=== PATIENT | female | born 1950 | race Caucasian/White ===

== ENCOUNTER 2016-11-02 19:27 | Observation (INO) | payer MEDICARE ==
[2016-11-02] MEDS ORDERED: LIDOCAINE VIS-MYLANTA 30 ML UD PO ONE (20:17)
[2016-11-02] MEDS ORDERED: SODIUM CHLORIDE 0.9% 1000ML 1,000 ML IVS ONE (20:18)
[2016-11-02] MEDS ORDERED: ONDANSETRON ODT 8 MG TAB SL SCH (20:30)
--- NOTE | 2016-11-02 20:56 | RAD ---
PROCEDURE: Abdomen Series Clinical History: abd pain/n/v Indication: Same as above Comparison: None Technique: Two views of the abdomen and pelvis were done and single view of the chest. Findings: There is no gross evidence of free air in the abdomen or the pelvis . The small and large bowel gas pattern does not show any evidence of obstruction, ileus or bowel wall thickening. There is no visualization of radiopaque calculi in the outline of the urinary tract. Note is made of multiple gallstones. There is ectasia and calcification of the abdominal aorta There is presence of mild constipation. There are no discrete airspace infiltrates or pleural effusions. There is no pneumothorax. Note is made of a 1 cm benign calcified granuloma in the periphery of the left midchest. The cardiomediastinal silhouette is unremarkable Impression: Note is made of multiple gallstones. There is ectasia and calcification of the abdominal aorta There is presence of mild constipation. There are no acute lung parenchymal findings Location of Interpretation: [id number] Electronically signed by: Faheem Lee MD 11/02/2016 8:56 PM [facility]
[2016-11-02] MEDS ORDERED: ACETAMINOPHEN 325 MG TAB PO ONE (21:28)
[2016-11-02] MEDS ORDERED: levoFLOXacin 500MG IV 500 MG in PREMIX BAG 1 BAG IVPB ONE (22:59)
[2016-11-02] MEDS ORDERED: metroNIDAZOLE IV PREMIX 500MG 500 MG in PREMIX BAG 1 BAG IVPB ONE (22:59)
[2016-11-02] MEDS ORDERED: metroNIDAZOLE IV PREMIX 500MG 100 ML IVPB ONE (23:04)
[2016-11-02] MEDS ORDERED: levoFLOXacin 500MG IV 100 ML IVPB ONE (23:05)
--- NOTE | 2016-11-02 23:11 | ED.PDOC ---
History of Present Illness - General Chief Complaint: Abdominal Pain Stated Complaint: abdominal pain Time Seen by Provider: 11/02/16 20:16 Source: patient Exam Limitations: no limitations - History of Present Illness Initial Comments: the patient is a 66-year-old female presenting to the emergency roomdue to 1 day of nausea and vomiting. She apparently had a couple of episodes of diarrhea yesterday. She has also had some low-grade fevers. She has some right upper quadrant discomfort to palpation. She went to her primary care doctor's office today who felt that the discomfort was either likely from gallbladder disease or significant gastritis. She was written for anti-emetics and Protonix along with Carafate. In spite of these medications she worsened. The patient shows up with [id number] dehydration and significant abdominal pain as well as a low-grade fever. She does still have her gallbladder. She does have significant right upper quadrant discomfort palpation. Timing/Duration: 24 hours Severity: moderate Improving Factors: medication Worsening Factors: eating Associated Symptoms: fever/chills, loss of appetite, malaise, nausea/vomiting Allergies/Adverse Reactions: Allergies Hydrocodone Allergy (Verified 11/02/16 21:00) Sulfa Antibiotics Allergy (Verified 11/02/16 21:00) Home Medications: Ambulatory Orders Blood Pressuremed 11/02/16 Levothyroxine Sodium 11/02/16 Review of Systems - Review of Systems Constitutional: States: fever, malaise EENTM: States: no symptoms reported Respiratory: States: no symptoms reported Cardiology: States: no symptoms reported Gastrointestinal/Abdominal: States: abdominal pain, diarrhea, nausea, vomiting Genitourinary: States: no symptoms reported Musculoskeletal: States: no symptoms reported Skin: States: no symptoms reported Neurological: States: no symptoms reported Endocrine: States: no symptoms reported All other Systems: No Change from Baseline Past Medical History (General) - Patient Medical History Hx Hypertension: Yes Hx Thyroid Disease: Yes Hx Diabetes: No - Vaccination History Hx Influenza Vaccination: No - Female History Patient is a Female of Child Bearing Age (10 -59 yrs old): No - Triage Comment ED Triage Comment: states pain at 8, is constant. Belching and vomiting Family Medical History - Family History Mother Family History: Unknown Physical Exam - Physical Exam General Appearance: Alert, Ill Appearing Eye Exam: bilateral normal Ears, Nose, Throat: normal ENT inspection, normal pharynx Neck: full range of motion, supple, normal inspection Respiratory: chest non-tender, lungs clear, normal breath sounds, no respiratory distress, no accessory muscle use Cardiovascular/Chest: normal peripheral pulses, regular rate, rhythm, no edema Peripheral Pulses: radial,right: 2+, radial,left: 2+ Gastrointestinal/Abdominal: soft, other - right upper quadrant discomfort to palpation. No definite palpable mass. Rectal Exam: deferred Back Exam: normal inspection, no CVA tenderness Extremity: normal range of motion, non-tender, normal inspection, no pedal edema , no calf tenderness, normal capillary refill Neurologic: alert, normal mood/affect, oriented x 3 Skin Exam: normal color Comments: Vital Signs - 24 hr 11/02/16 20:55 Temperature 100.1 F H Pulse Rate [ 72 Right] Respiratory 18 Rate Blood Pressure 121/86 [Left Arm] O2 Sat by Pulse 96 Oximetry Progress - Progress Progress: 11/02/16 23:13 the patient is a 66-year-old female presenting with what appears to be acute cholecystitis. The patient will be made nothing by mouth. She is receiving IV Levaquin and metronidazole. The patient is feeling somewhat better after IV fluids and antibiotics. Admit for further management and surgical intervention as deemed necessary. Additionally the patient does have a new finding of an abdominal aortic aneurysm measuring 4.5 cm. An ultrasound in the morning for further characterization would be recommended both for current evaluation and for future comparisons. Vital signs remained stable. Admit. - Results/Orders Results/Orders: Laboratory Last Values WBC 10.0 K/mm3 (4.8-10.8) 11/02/16 20:30 RBC 4.85 M/mm3 (4.20-5.40) 11/02/16 20:30 Hgb 14.4 gm/dL (12.0-16.0) 11/02/16 20:30 Hct 43.2 % (36.0-47.0) 11/02/16 20:30 MCV 89.0 fl (81.0-99.0) 11/02/16 20:30 MCH 29.7 pg (27.0-31.0) 11/02/16 20:30 MCHC 33.4 g/dL (33.0-37.0) 11/02/16 20:30 RDW 12.9 % (11.5-14.5) 11/02/16 20:30 Plt Count 213 K/mm3 (130-400) 11/02/16 20:30 MPV 7.8 fl (7.40-10.4) 11/02/16 20:30 Absolute Neuts (auto) 7.30 K/uL (1.8-6.8) H 11/02/16 20:30 Absolute Lymphs (auto) 1.90 K/uL (1.0-3.4) 11/02/16 20:30 Absolute Monos (auto) 0.70 K/uL (0.2-0.8) 11/02/16 20:30 Absolute Eos (auto) 0.10 K/uL (0.0-0.4) 11/02/16 20:30 Absolute Basos (auto) 0.10 K/uL (0.0-0.1) 11/02/16 20:30 Neutrophils % 72.5 % (42.0-78.0) 11/02/16 20:30 Lymphocytes % 18.8 % (20.0-50.0) L 11/02/16 20:30 Monocytes % 7.5 % (2.0-9.0) 11/02/16 20:30 Eosinophils % 0.5 % (1.0-5.0) L 11/02/16 20:30 Basophils % 0.7 % (0.0-2.0) 11/02/16 20:30 PT 11.9 SECONDS (9.4-12.5) 11/02/16 20:30 INR 1.050 11/02/16 20:30 PTT (SP) 29.3 SECONDS (25.1-36.5) 11/02/16 20:30 Sodium 139 mmol/L (135-145) 11/02/16 20:30 Potassium 3.8 mmol/L (3.6-5.0) 11/02/16 20:30 Chloride 101 mmol/L (101-111) 11/02/16 20:30 Carbon Dioxide 30 mmol/L (21-31) 11/02/16 20:30 Anion Gap 11.8 (12-18) L 11/02/16 20:30 BUN 16 mg/dL (7-18) 11/02/16 20:30 Creatinine 0.89 mg/dL (0.6-1.3) 11/02/16 20:30 BUN/Creatinine Ratio 18.0 (10-20) 11/02/16 20:30 Random Glucose 136 mg/dL (70-105) H 11/02/16 20:30 Serum Osmolality 280.8 mOsm/L (275-295) 11/02/16 20:30 Calcium 9.9 mg/dL (8.4-10.2) 11/02/16 20:30 Total Bilirubin 1.2 mg/dL (0.2-1.0) H 11/02/16 20:30 AST 44 IU/L (10-42) H 11/02/16 20:30 ALT 32 IU/L (10-60) 11/02/16 20:30 Alkaline Phosphatase 67 IU/L (42-121) 11/02/16 20:30 Creatine Kinase 429 IU/L (26-140) H* 11/02/16 20:30 CK-MB (CK-2) 3.7 ng/mL (0.0-4.4) 11/02/16 20:30 CK-MB (CK-2) % 0.86 % (0.0-4.3) 11/02/16 20:30 Troponin I 0.03 ng/mL (0.01-0.05) 11/02/16 20:30 Serum Total Protein 8.1 gm/dL (6.4-8.2) 11/02/16 20:30 Albumin 4.4 g/dl (3.2-5.5) 11/02/16 20:30 Globulin 3.7 gm/dL (2.3-3.5) H 11/02/16 20:30 Albumin/Globulin Ratio 1.2 (1.1-1.9) 11/02/16 20:30 Amylase 40 U/L (28-100) 11/02/16 20:30 Lipase 31 U/L (22-51) 11/02/16 20:30 Urine Color Yellow (Yellow) 11/02/16 21:09 Urine Appearance Clear (Clear) 11/02/16 21:09 Urine pH 7.0 (4.5-7.8) 11/02/16 21:09 Ur Specific [place] 1.020 (1.005-1.030) 11/02/16 21:09 Urine Protein Negative mg/dL 11/02/16 21:09 Urine Glucose (UA) Negative mg/dL (Negative) 11/02/16 21:09 Urine Ketones Negative mg/dL (NEGATIVE) 11/02/16 21:09 Urine Blood Trace-intact (Negative) H 11/02/16 21:09 Urine Nitrite Negative 11/02/16 21:09 Urine Bilirubin Negative (NEGATIVE) 11/02/16 21:09 Urine Urobilinogen 0.2 mg/dL (0.2-1.0) 11/02/16 21:09 Ur Leukocyte Esterase Negative (Negative) 11/02/16 21:09 Urine RBC 1-3 /hpf 11/02/16 21:09 Urine WBC 3-5 /hpf H 11/02/16 21:09 Ur Epithelial Cells 10-20 /hpf 11/02/16 21:09 Urine Bacteria 2+ H 11/02/16 21:09 x-ray of the abdomen shows benign bowel gas pattern. She does have chronic changes. CT scan of the abdomen shows changes consistent with acute cholecystitis. Additionally she does have a abdominal aortic aneurysm measuring 4.5 cm. Departure - Departure Clinical Impression: Cholecystitis, acute with cholelithiasis Qualifiers: Cholelithiasis location: gallbladder Biliary obstruction: without biliary obstruction Qualifier Code: (K80.00) Calculus of gallbladder with acute cholecystitis without obstruction Disposition: Admit Patient Instructions: DI for Abdominal Pain-Adult Home Medications: Ambulatory Orders Blood Pressuremed 11/02/16 Levothyroxine Sodium 11/02/16 Decision To Admit - Decistion To Admit Decision to Admit Reason: Medical Nature Decision to Admit Date: 11/02/16 Decision to Admit Time: 23:15
[2016-11-02] MEDS ORDERED: SODIUM CHLORIDE 0.9% (FLUSH) 10 ML SYG IV PRN (23:41)
[2016-11-02] MEDS ORDERED: ONDANSETRON INJ 4 MG/2 ML VIAL IV PRN (23:41)
[2016-11-02] MEDS ORDERED: PANTOPRAZOLE SODIUM IV 40 MG VIAL IV SCH (23:45)
[2016-11-02] MEDS ORDERED: IV SET AND CAP CHANGE INJ INJ SCH (23:45)
[2016-11-02] MEDS ORDERED: HYDROmorphone HCL INJ 2 MG/ML VIAL IV PRN (23:49)
[2016-11-02] MEDS ORDERED: SODIUM CHLORIDE 0.9% 1000ML 1,000 ML IVS PRN (23:50)
--- NOTE | 2016-11-02 23:56 | PCM.CORE ---
Physician DVT/VTE - 3-4 High Risk Treatments: Sequential Compression Device
--- NOTE | 2016-11-03 07:11 | RAD ---
EXAM DESCRIPTION: XR CHEST 1 VIEW CLINICAL HISTORY: fever, pre-op GB COMPARISON: November 02, 2016 FINDINGS: The cardiomediastinal silhouette is unremarkable. There is elevation of the right hemidiaphragm, not significantly changed from yesterday's exam. No airspace consolidation or pleural effusion. Subsegmental atelectasis or scarring is noted in the lung bases. There is no pneumothorax or acute fracture. IMPRESSION: Chronic mild elevation of the right hemidiaphragm, but no acute intrathoracic abnormality. Electronically signed by: Jey Smith DO 11/03/2016 07:09
[2016-11-03] MEDS ORDERED: SODIUM CHLORIDE 0.9% 10 ML VIAL ONE (07:41)
[2016-11-03] MEDS ORDERED: metroNIDAZOLE IV PREMIX 500MG 100 ML IVPB ONE (07:49)
[2016-11-03] MEDS ORDERED: SODIUM CHLORIDE 0.9% 10 ML VIAL IV PRN (07:49)
[2016-11-03] MEDS ORDERED: metroNIDAZOLE IV PREMIX 500MG 500 MG in PREMIX BAG 1 BAG IVPB SCH (08:00)
[2016-11-03 08:37] VITALS: O2SAT 93
--- NOTE | 2016-11-03 10:28 | CONS ---
DATE OF CONSULTATION: 11/03/16 HISTORY OF PRESENT ILLNESS: The patient is a 67-year-old female who was admitted through the Emergency Room for right upper quadrant pain, nausea, low grade fever and minimally elevated white blood cell count. The patient states that her symptoms began the night before she was seen by her primary care provider, Cody Heath, who gave her antiemetics, Protonix, and Carafate and ordered an ultrasound. Her pain worsened, so she presented to the Emergency Room. She also states she had had bloating, but she denied any specific association with fatty meals. She denied previous episodes of like illness. PAST MEDICAL HISTORY: 1. Hypertension. 2. Hypothyroidism. 3. Childbirth. PAST SURGICAL HISTORY: 1. Bilateral knee replacement. ALLERGIES: SULFA MEDICATIONS, HYDROCODONE. MEDICATIONS: 1. Carafate. 2. Protonix. 3. Antiemetic, uncertain. FAMILY HISTORY: Noncontributory. SOCIAL HISTORY: The patient lives at home. She quit smoking years ago with no history of alcohol abuse. REVIEW OF SYSTEMS: There has been no history of hepatitis, jaundice, acholic stools, blood per rectum, change in bowel habits, or bloody vomitus. Also, no significant weight loss, change in appetite. She denies urinary tract symptoms and upper respiratory symptoms. There is no chronic cough or chest pain. PHYSICAL EXAMINATION: GENERAL: The patient is awake, alert, cooperative, in mild distress. VITAL SIGNS: The patient is currently afebrile, but she was admitted with a temperature of over 100. She is normotensive. HEENT: Sclerae nonicteric. Mucous membranes moist. NECK: Without adenopathy. BACK: Without CVA tenderness. CHEST: Equal breath sounds bilaterally. ABDOMEN: Mild right upper quadrant tenderness without mass or guarding. No pulsatile masses palpated. LABORATORY: Last night in the Emergency Room, white count was 10,000, 72% neutrophils, hemoglobin 14.4, platelet count 213,000. Liver function tests were mildly elevated with AST 44, total bilirubin 1.2. CK elevated at 429 with a normal CK-MB and normal troponin. Amylase and lipase are within normal limits. CT scan reveals an aortic aneurysm which is 4.5 cm, of which the patient is aware, but we do not know the size on previous examinations. Also, there are gallstones and pericholecystic fluid consistent with acute cholecystitis. ASSESSMENT: 1. Cholelithiasis with cholecystitis. 2. Abdominal aortic aneurysm. 3. Hypertension. 4. Hypothyroidism. PLAN: After discussion with the patient, she has decided she does not wish to proceed with surgery at this time, so she will be given a low fat diet and see how she tolerates this diet. We will continue the antibiotics until we see if she tolerates food. I would still recommend followup shortly after discharge to continue an elevated cholecystectomy. Also, followup needs to be done to find out what her previous size of the aneurysm was. I will reevaluate the patient after she has eaten. #[id number] [facility] HOSPITALPadmini
[2016-11-03] MEDS ORDERED: ACETAMINOPHEN 325 MG TAB PO ONE (10:56)
[2016-11-03] MEDS ORDERED: LEVOTHYROXINE SODIUM 137 MCG PO SCH (11:00)
[2016-11-03] MEDS ORDERED: LEVOTHYROXINE SODIUM 0.112 MG, LEVOTHYROXINE SODIUM 0.025 MG PO SCH ×2 (11:00)
[2016-11-03] MEDS ORDERED: LISINOPRIL 10 MG TAB PO ONE (11:01)
[2016-11-03] MEDS ORDERED: LEVOTHYROXINE SODIUM 0.025 MG TAB ONE (11:31)
[2016-11-03] MEDS ORDERED: LEVOTHYROXINE SODIUM 0.112 MG TAB ONE (11:31)
[2016-11-03 12:10] VITALS: BP 115/69; TEMP 97.7
--- NOTE | 2016-11-03 14:10 | SSS ---
DISCHARGE DIAGNOSIS: 1. Acute abdominal pain. 2. Radiographic evidence of combined cholelithiasis and acute cholecystitis, symptomatic. 3. History of abdominal aortic aneurysm, 4.5 cm. 4. History of hypertension. 5. History of hypothyroidism, on supplementation. HISTORY OF PRESENT ILLNESS: This 66-year-old, white female was admitted to the hospital from the Emergency Room with worsening pain noted on the night before admission, awakening her. She had this vague epigastric discomfort with nausea which blunted her appetite and resulted in some nausea and vomiting as well. No previous history of similar symptoms. No history of fatty food or spicy food intolerance in the past. No history of GI bleeding. She does have a family history of a younger sister having had gallbladder disease which ruptured on her, requiring a prolonged convalescence. PAST MEDICAL HISTORY: 1. History of hypertension. 2. Low thyroid. 3. Abdominal aortic aneurysm, which the patient though was 4.9 cm a few years ago, but is now only 4.5 cm. PAST SURGICAL HISTORY: 1. Bilateral knee replacement. 2. Tonsillectomy. FAMILY HISTORY: Coronary artery disease and diabetes mellitus. 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 She stopped tobacco smoking about 17 years ago. ALLERGIES: HYDROCODONE, SULFA MEDICATIONS. MEDICATIONS: Please refer to nursing notes for a list of verified home medications. REVIEW OF SYSTEMS: CONSTITUTIONAL: No significant weight change. She has had some low grade fever with associated chills with her current illness. HEENT: No hearing or vision problems. PULMONARY: No significant shortness of breath or cough. CARDIOVASCULAR: No chest pains or palpitations. ABDOMEN: Nausea, vomiting, and abdominal pain, especially in the epigastrium to the right upper quadrant. No blood in the stools. GENITOURINARY: No dysuria. EXTREMITIES: No significant edema. NEUROLOGIC: No focal weakness. PHYSICAL EXAMINATION: VITAL SIGNS: Temperature initially elevated at 100.1, but remained afebrile during the remainder of her hospital course. Blood pressure 127/81. Pulse oximetry 95% on room air. Weight 88.4 kg. GENERAL: The patient was awake and alert. She initially was quite symptomatic , but then as the hospital continued, she became less so. HEENT: Within normal limits. NECK: Supple. CARDIAC: Heart tones regular. LUNGS: Clear. ABDOMEN: Fairly normal bowel tones, though slightly decreased initially, but improving as hospital course continued. She is tender in the right upper quadrant and the epigastric to palpation. No masses noted. EXTREMITIES: No significant edema state with good muscle tone. NEUROLOGIC: No focal neurologic deficits. The patient is awake, alert, oriented and communicative. LABORATORY: White count normal at 7,700 on discharge. Hemoglobin 13. INR 1.05. Chemistries showed potassium 3.8, BUN 15, creatinine 0.8, glucose 106, bilirubin 1.3, while liver enzymes were otherwise normal at the time of discharge. CK decreased from 429 down to 309 at discharge. Cardiac enzymes otherwise normal. Albumin 3.7. Amylase and lipase normal. Urinalysis showed some hematuria, mild pyuria, 2+ bacteruria. Urine culture pending. Influenza A /B negative. X-ray of the abdomen and pelvis with CT exam does show significant evidence of cholelithiasis with cholecystitis with thickened cantu and pericholecystic fluid accumulation. Chest x-ray was performed and showed mild elevation of the right hemidiaphragm, otherwise no acute findings evident. HOSPITAL COURSE: The patient was feeling much improved at the time of discharge. She tolerated a low fat diet for breakfast and lunch. She was seen by Dr. Vivas in consultation who will assist with ongoing followup. The patient at this time does not wish to have surgery and since she is feeling better, she will try the low fat diet and have close followup in the clinic. PLAN: Discharge home with close followup with Dr. Vivas in 2 weeks or sooner if symptoms are noted. Followup with Cody Heath in the clinic as needed. Remain on a very low fat diet. If not feeling well, may need to see Dr. Vivas earlier. Do not ignore symptoms which may indicate a significant complication being present. We will continue with home medications with the addition of Flagyl 375 mg t.i.d. and Levaquin 500 mg daily for the next 8 days. Return if not improving. #[id number] [facility]
[2016-11-03] MEDS ORDERED: levoFLOXacin 500MG IV 500 MG in PREMIX BAG 1 BAG IVPB SCH (22:00)
[2016-11-04] MEDS ORDERED: PANTOPRAZOLE SODIUM IV 40 MG VIAL IV SCH (06:30)
--- NOTE | 2016-11-16 00:10 | RAD ---
PROCEDURE: Abdomen Series Clinical History: abd pain/n/v Indication: Same as above Comparison: None Technique: Two views of the abdomen and pelvis were done and single view of the chest. Findings: There is no gross evidence of free air in the abdomen or the pelvis . The small and large bowel gas pattern does not show any evidence of obstruction, ileus or bowel wall thickening. There is no visualization of radiopaque calculi in the outline of the urinary tract. Note is made of multiple gallstones. There is ectasia and calcification of the abdominal aorta There is presence of mild constipation. There are no discrete airspace infiltrates or pleural effusions. There is no pneumothorax. Note is made of a 1 cm benign calcified granuloma in the periphery of the left midchest. The cardiomediastinal silhouette is unremarkable Impression: Note is made of multiple gallstones. There is ectasia and calcification of the abdominal aorta There is presence of mild constipation. There are no acute lung parenchymal findings Location of Interpretation: [id number] Electronically signed by: Faheem Lee MD 11/02/2016 8:56 PM ROTARY OPERATOR
--- NOTE | 2016-11-16 00:11 | CT ---
EXAM DESCRIPTION: Abdomen/Pelvis w/Contrast CLINICAL HISTORY: upper abd pain, elevated ck COMPARISON: None Available TECHNIQUE: Contiguous axial images of the abdomen and pelvis were obtained after the administration of intravenous contrast followed by reconstruction images. FINDINGS: Linear opacities within the lungs may represent scar versus subsegmental atelectasis. There is atherosclerosis. There is aneurysmal dilatation of the infrarenal abdominal aorta measuring 4.5 cm in greatest transverse diameter. There are gallstones within the gallbladder. The gallbladder is distended. There is a small amount of fluid adjacent to the gallbladder. There are bilateral renal cysts. There are diverticuli without CT evidence of acute diverticulitis. There is no discrete pelvic mass. Appendix was not visualized. The liver, spleen, pancreas and kidneys are otherwise within normal limits. There is no hydronephrosisAdrenal. Glands are within normal limits. Aorta is of normal caliber and tapering. There is no free fluid in the abdomen or pelvis. There is no bowel obstruction. There is no stranding of the mesenteric fat to suggest an inflammatory response. IMPRESSION: Cholelithiasis, distended gallbladder and pericholecystic fluid highly suspicious for acute cholecystitis. Correlation with a sonogram could be helpful for further evaluation if indicated. Aneurysmal dilatation of the infrarenal abdominal aorta with greatest diameter of 4.5 cm. Vascular consultation is recommended and follow-up every six months. Electronically signed by: Justin Romero MD 11/02/2016 10:24 PM [employer]
== END 2016-11-03 14:20 | disposition home or self-care (01) ==
LOC: ER 19:27 → MS 11-03 03:02 → OBSVTOIN 11-03 13:15 → INTOOBSV 11-03 13:15
PROVIDERS: ADMIT Emergency Medicine; ATTEND Emergency Medicine
DX: K80.00 Calculus of gallbladder with acute cholecystitis without obstruction (principal); R10.11 Right upper quadrant pain; I71.4 Abdominal aortic aneurysm, without rupture; I10 Essential (primary) hypertension; E03.9 Hypothyroidism, unspecified; R11.2 Nausea with vomiting, unspecified; R50.9 Fever, unspecified; Z79.899 Other long term (current) drug therapy; Z88.2 Allergy status to sulfonamides; Z88.6 Allergy status to analgesic agent; Z96.653 Presence of artificial knee joint, bilateral; Z82.49 Family history of ischemic heart disease and other diseases of the circulatory system; Z83.3 Family history of diabetes mellitus
CPT/HCPCS: 36415 ×3; 71010; 74020; 74177; 80053 ×2; 81001; 82150; 82550 ×2; 82553; 83690 ×2; 84484; 85025 ×2; 85610; 85730; 87086; 87088; 87186; 87804; 93005; 94760; 96361; 96365; 96366; 96367; 96375; 99284; J1956; J3490 ×2; J7030 ×2

== ENCOUNTER 2016-11-06 09:53 | Emergency (ER) | payer MEDICARE ==
--- NOTE | 2016-11-06 10:20 | ED.PDOC ---
History of Present Illness - General Chief Complaint: Skin/Abrasion/Tear Stated Complaint: POSSIBLE ALLERGIC REACTION Time Seen by Provider: 11/06/16 10:13 Source: patient Exam Limitations: no limitations - History of Present Illness Initial Comments: WAS ADMITTED 2 DAYS AGO WITH CHOLECYSTITIS. SENT HOME ON LEVAQUIN AND FLAGYL. YESTERDAY NOTICED RASH TO ABDOMEN. THIS AM SHE BEGAN TO HAVE NUMBNESS TO HANDS AND LEGS. 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 STATES IT WAS NUMB AND SHE HAD PROBLEM HOLDING IT UP. Timing/Duration: other - ONSET YESTERDAY Severity: mild Improving Factors: nothing Worsening Factors: nothing Associated Symptoms: other - NUMBNESS Allergies/Adverse Reactions: Allergies Hydrocodone Allergy (Verified 11/02/16 21:00) Sulfa Antibiotics Allergy (Verified 11/02/16 21:00) Home Medications: Ambulatory Orders Levothyroxine Sodium [Synthroid] 137 mcg PO DAILY 11/03/16 Lisinopril & Hydrochlorothiazi [Lisinopril/Hctz 20-12.5 mg] 1 tab PO DAILY 11/03 Metronidazole [Flagyl] 375 mg PO TID #25 cap 11/03/16 Sertraline HCl [Zoloft] 50 mg PO DAILY 11/03/16 levoFLOXacin [Levaquin] 500 mg PO DAILY #8 tab 11/03/16 Methylprednisolone [Medrol Dose Neil] 4 mg PO DAILY #1 tab 11/06/16 Review of Systems - Review of Systems Constitutional: Denies: chills, fever EENTM: Denies: eye pain, blurred vision Respiratory: Denies: cough, short of breath, wheezing Cardiology: Denies: chest pain, palpitations Gastrointestinal/Abdominal: Denies: abdominal pain, nausea, vomiting Genitourinary: States: no symptoms reported Musculoskeletal: Denies: joint pain, joint swelling Skin: States: rash Neurological: States: numbness, other - 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 Denies: tingling, weakness Endocrine: States: no symptoms reported Hematologic/Lymphatic: States: no symptoms reported Past Medical History (General) - Patient Medical History Hx Seizures: No Hx Stroke: No Hx Asthma: No Hx of COPD: No Hx Congestive Heart Failure: No Hx Pacemaker: No Hx Hypertension: Yes Hx Thyroid Disease: Yes Hx Diabetes: No Hx MRSA: No - Vaccination History Hx Influenza Vaccination: No - Social History Hx Alcohol Use: No Hx Substance Use: No Hx Physical Abuse: No Hx Emotional Abuse: No Family Medical History - Family History Mother Family History: Unknown Living Status: Hx Family Asthma: No Hx Family Congestive Heart Failure: No Hx Family Hypertension: No Hx Family Stroke: No Hx Cardiac Disease: No Hx Family Diabetes: No Hx Family Cancer: No Physical Exam - Physical Exam General Appearance: Alert, Well Developed, Well Nourished Eye Exam: bilateral normal Ears, Nose, Throat: normal ENT inspection, normal pharynx Neck: non-tender, full range of motion, other - NO BRUIT Respiratory: lungs clear, normal breath sounds, no respiratory distress Cardiovascular/Chest: regular rate, rhythm, no murmur Gastrointestinal/Abdominal: non tender, soft Back Exam: normal inspection, no CVA tenderness Extremity: normal range of motion, non-tender Neurologic: business improvement manager II-XII nml as tested, no motor/sensory deficits, normal mood/ affect, oriented x 3 Skin Exam: rash - VERY MILD MACULAR RASH TO UPPER ABD/LOWER CHEST WALL. +/- CW ALLERGIC REACTION Lymphatic: no adenopathy Progress - EKG/XRAY/CT EKG: Sinus - RATE 67, NL AXIS, NL INTERVALS, NON SPECIFIC T WAVE CHANGES, NAIP NO CHANGE (11/03/16) Departure - Departure Clinical Impression: Allergic (intrinsic) eczema, Paresthesia of arm Time of Disposition: 11:45 Disposition: Discharge to Home or Self Care Condition: Good Departure Forms: ED Discharge - Pt. Copy, Patient Portal Self Enrollment Instructions: DI for Numbness/tingling, DI for General Allergic Reactions Prescriptions: Methylprednisolone [Medrol Dose Neil] 4 mg PO DAILY #1 tab Home Medications: Ambulatory Orders Levothyroxine Sodium [Synthroid] 137 mcg PO DAILY 11/03/16 Lisinopril & Hydrochlorothiazi [Lisinopril/Hctz 20-12.5 mg] 1 tab PO DAILY 11/03 Metronidazole [Flagyl] 375 mg PO TID #25 cap 11/03/16 Sertraline HCl [Zoloft] 50 mg PO DAILY 11/03/16 levoFLOXacin [Levaquin] 500 mg PO DAILY #8 tab 11/03/16 Methylprednisolone [Medrol Dose Neil] 4 mg PO DAILY #1 tab 11/06/16
[2016-11-06 10:25] VITALS: TEMP 98.6
[2016-11-06 12:09] VITALS: O2SAT 98
[2016-11-06 12:18] VITALS: BP 122/78
== END 2016-11-06 12:05 | disposition home or self-care (01) ==
LOC: ER 09:53
DX: L20.84 Intrinsic (allergic) eczema (principal); R20.9 Unspecified disturbances of skin sensation; I10 Essential (primary) hypertension; E07.9 Disorder of thyroid, unspecified; Z88.2 Allergy status to sulfonamides; Z88.6 Allergy status to analgesic agent; Z79.899 Other long term (current) drug therapy

== ENCOUNTER → 2017-04-23 | Outpatient (CLI) | payer MEDICARE | END | disposition home or self-care (01) | LOC: LAB.O 10:43 | PROVIDERS: ATTEND Nurse Practitioner Family | DX: I10 Essential (primary) hypertension (principal); E03.9 Hypothyroidism, unspecified ==

== ENCOUNTER → 2017-10-06 | Outpatient (CLI) | payer MEDICARE, OTHER ==
--- NOTE | 2017-10-06 17:13 | US ---
EXAM DESCRIPTION: Abdomen,Complete: Ultrasound. CLINICAL HISTORY: AAA COMPARISON: CT scan of the abdomen and pelvis with contrast 11/02/2016. TECHNIQUE: Transabdominal scannin-dimensional and Doppler modes. FINDINGS: The gallbladder contains multiple echogenic stones which are mobile with patient change in position. Largest stone with acoustic shadowing measuring 10 mm. No fluid around the gallbladder. Wall thickness normal. 2.4 mm. Common bile duct caliber 7.2 mm which is dilated.. No stones in the visualized portion of the duct. Not tender with transducer pressure. The liver demonstrates increased echogenicity; contour of the liver capsule is smooth where seen. No fluid around the liver. Intrahepatic biliary ducts are non-dilated. Craniocaudal dimension in the mid-clavicular axis is 14.8 cm. Pancreas head, body, and tail normal in size and echogenicity. Pancreatic duct is not dilated. Normal Doppler vascularity in the margie hepatis. Abdominal aorta diameter proximal 4.5 x 4.2 cm. Mid 4.5 x 3.9 cm. Distal 5.2 x 5.0 cm. IVC visualized; normal caliber. Spleen normal echogenicity; long axis measurement is 7.6 cm. No fluid in the spleno-renal fossa. Right kidney measures 10.5 x 6.5 x 5.8 cm . Minimal thinning of the mid renal cortex. 5.7 x 3.1 cm lobulated anechoic cyst. Echogenicity otherwise normal with no hydronephrosis, no large calcifications, and no perinephric fluid. Contour smooth. Vascularity normal. Ureter not visualized. Left kidney measures 9.9 x 5.5 x 5.5 cm. Minimal thinning of the mid renal cortex.. 4.6 x 4.2 cm anechoic cyst. 3.1 x 2.4 cm anechoic cyst. Echogenicity otherwise normal with no hydronephrosis, no large calcifications, and no perinephric fluid. Contour smooth. Vascularity normal. Ureter not visualized. IMPRESSION: 1. Abdominal aorta maximum diameter distally 5.2 cm. This is approximately 10% larger in diameter than the prior CT scan 11 months ago. This could be related to technique and variability of modalities. No para-aortic mass. Follow-up imaging in 6 month interval according to [employer] Best Practice recommendations for abdominal aortic aneurysmal imaging follow-up. Please see below.* 2. Numerous gallstones again noted which were also seen on the prior CT scan. Common bile duct is dilated. No ascites. 3.Steatosis of the liver without enlargement. Normal vascularity no intrahepatic duct dilation. 4. Multiple cysts in the left kidney. Largest cyst in the right kidney. Cortical thinning and echogenicity is most likely age-related. *AAA Size: Follow-up Recommendation (1): 2.6 - 2.9 cm Every 5 years (2) 3.0 - 3.4 cm Every 3 years 3.5 - 3.9 cm Every 12 months 4.0 - 4.4 cm Every 12 months, vasc consult rec 4.5 - 5.4 cm Every 6 months, vasc consult rec >=5.5 cm Referral to vascular surgeon recommended (1)Based upon the Society for Vascular Surgery Guidelines: J Vasc Surg. 2009 Jun;50(4 Suppl):S2-49 (2)For aortas of max sharon of 2.6-2.9 cm that meet criteria for AAA (>= 1.5 x proximal normal segment) Electronically signed by: Juvencio Hawley MD 10/06/2017 5:12 PM [facility]
== END | disposition home or self-care (01) ==
LOC: US 10-05 13:46
PROVIDERS: ATTEND Nurse Practitioner Family
DX: I71.4 Abdominal aortic aneurysm, without rupture (principal)